=== PATIENT | female | born 1970 | race Caucasian/White ===

== ENCOUNTER → 2018-08-24 15:24 | Outpatient (CLI) | payer OTHER, SELFPAY ==
--- NOTE | 2018-08-24 15:34 | BI_ITS ---
MAMMOGRAPHY - BILATERAL SCREENING REASON FOR EXAM: Female, 48 years old. Routine annual screening examination. PERTINENT HISTORY: Non-contributory. TECHNIQUE: Digital bilateral breast treva (3D mammographic acquisition) in the CC and MLO projections. 2-D mediolateral oblique (MLO) and craniocaudad (CC) views of both breasts were obtained. CAD: Full Field Digital Mammography with Computer Added Detection was performed. COMPARISON: Comparison is made with prior study dated September 05, 2016. FINDINGS: Breast Composition: The breasts are heterogeneously dense, which may obscure small masses. There are no dominant masses or suspicious calcifications. Stable 4.5 mm well-defined nodule in the upper anterior lateral aspect of the right breast. A central fatty hilum is seen suggesting a small lymph node. No other significant abnormalities are identified. There has been no significant change since the prior study. BI/SCREENING MAMM (CAD), BILAT IMPRESSION: Stable bilateral screening mammogram. Yearly follow-up mammogram recommended. (A) ASSESSMENT CATEGORY: BIRADS Category 2: Benign. A letter regarding these results will be sent to the patient by the facility within 30 days. Approximately 10% of breast cancers are not detected by mammography. A normal mammogram should not delay biopsy of a clinically suspicious abnormality. [id number] Electronically Signed: Félix Bunn, at 9:00 EST , Service support ,
== END ==
PROVIDERS: Visit Provider Obstetrics & Gynecology
DX: Z12.31 Encounter for screening mammogram for malignant neoplasm of breast (principal)
CPT/HCPCS: 77063; 77067

== ENCOUNTER 2021-02-16 11:31 | Emergency (ER) | payer BC, SELFPAY ==
[2021-02-16 11:33] VITALS: BP 123/80; PULSE 100; RESP 16; TEMP 36.9; O2SAT 100; BMI 31.6
--- NOTE | 2021-02-16 11:59 | RAD_ITS ---
HISTORY: cough EXAMINATION/TECHNIQUE: XR Chest 1 View: Portable upright AP chest x-ray COMPARISON: 04/02/13 FINDINGS: LINES/DEVICES: None. LUNGS: Left basilar air space opacities partially obscuring the left hemidiaphragm. MEDIASTINUM AND CARDIOVASCULAR STRUCTURES: Cardiac silhouette not enlarged. Central airways and mediastinal contour are unremarkable. BONES AND SOFT TISSUES: No acute bony abnormalities. RAD/Chest 1 View (Portable) IMPRESSION: Left basilar airspace disease with possible small pleural effusion. Findings suspicious for pneumonia. Recommend short-term follow-up to resolution. at 1348 Reported and signed by: Darren Ruby MD Electronically Signed: Darren Ruby MD at 13:47 EDT Tel , Service support ,
--- NOTE | 2021-02-16 12:02 | EX.ED.DYSGE1 ---
HPI History of Present Illness Chief Complaint: Headache Informant: patient Onset/Context/Timing Onset: Days Context: Gradual Onset Current Severity: Moderate Maximum Severity: Moderate Narrative Narrative: Patient presents secondary to headache. She tested positive for Covid 8 days ago. Symptoms started 7 days ago with body aches, cough, fever. She reports decreased p.o. intake secondary to nausea. She is concerned she is getting dehydrated. She complains of a frontal headache that has been ongoing. She has been taking Tylenol and ibuprofen regularly. She did not take any meds this morning. [facility] Medical History (Updated 02/16/21 @ 14:[address] Brook Sepulveda MD) Thyroid disease Tonsillectomy planned Home Medications levothyroxine 50 mcg PO DAILY #30 tablet 04/03/13 [Rx Last Taken Unknown] loratadine 10 mg tablet 10 mg PO DAILY 02/08/21 [History Last Taken Unknown] dexamethasone [Decadron] 6 mg PO DAILY #9 tab 02/16/21 [Rx Last Taken Unknown] Allergy/AdvReac Type Severity Reaction Status Date / Time ampicillin Allergy Swelling Verified 02/16/21 11:33 Social History Smoking Status: Never smoker ROS ROS ED Constitutional Constitutional ED: Reports chills and fever(s) Eyes Eyes: Denies change in vision ENT ENT ED: Denies sore throat Cardiovascular Cardiovascular: Denies chest pain Respiratory/Chest Respiratory/Chest: Reports cough; Denies dyspnea or sputum Gastrointestinal Gastrointestinal: Reports nausea; Denies abdominal pain, diarrhea or vomiting Genitourinary Genitourinary ED: Denies dysuria Musculoskeletal Musculoskeletal: Reports myalgias; Denies back pain Integumentary Denies rash Neurologic Neurologic: Reports headache(s); Denies weakness Psychiatric Psychiatric: Denies anxiety or depression Allergic/Immunologic Allergic/Immunologic ED: Denies urticaria EXAM Physical Exam Const Vital Signs: 02/16/21 11:33 Temperature 98.5 F Temperature Source Temporal Pulse Rate 100 Respiratory Rate 16 Blood Pressure 123/80 H Blood Pressure Mean 94 Pulse Ox 100 Oxygen Delivery Method Room Air Positive well nourished and well developed General Appearance ED: well developed HEENT Reports normocephalic and head/scalp atraumatic Eyes PERRL and EOMs intact bilaterally Neck supple Neck Narrative: No meningismus Chest Wall inspection of chest normal and palpation of chest normal Resp normal respiratory effort and clear to auscultation bilaterally Cardio regular rate and regular rhythm GI normal to inspection, nondistended, normoactive bowel sounds and non-tender Palpation: soft Extremity normal to inspection Neuro oriented x3 and no sensory deficits noted Sensorium / Orientation: alert Motor Exam: strength 5/5 throughout Psych mental status grossly normal Skin no rashes or lesions noted MDM MDM MDM Narrative Medical decision making narrative: Patient was given a small IV fluid bolus along with Toradol, Reglan, Benadryl. Lab work and chest x-ray obtained. Lab Data Attestation: I reviewed the patient's lab results. Labs: Laboratory Results - last 24 hr 02/16/21 02/16/21 12:45 12:45 WBC 6.0 RBC 5.16 Hgb 15.2 H Hct 46.9 MCV 90.9 MCH 29.5 MCHC 32.4 RDW Std Deviation 43.1 RDW Coeff of Denise 12.8 Plt Count 255 MPV 10.5 Immature Gran % (Auto) 0.300 Neut % (Auto) 70.1 H Lymph % (Auto) 20.8 [place] % (Auto) 8.2 Eos % (Auto) 0.3 Baso % (Auto) 0.3 Absolute Neuts (auto) 4.2 Absolute Lymphs (auto) 1.24 Nucleated RBC % 0 Sodium 139 Potassium 4.6 Chloride 105 Carbon Dioxide 27.0 Anion Gap 7 BUN 7 Creatinine 0.73 Estim Creat Clear Calc 68.80 Est GFR (MDRD) Af Amer 108 Est GFR (MDRD) Non-Af 89 BUN/Creatinine Ratio 9.6 L Glucose 92 Calcium 8.7 Radiography Chest X-Ray - ED: 1 View, Read by ED Physician and Chronic Changes Diagnostic Testing: Radiology Impression Chest X-Ray 02/16/21 11:59 IMPRESSION: Left basilar airspace disease with possible small pleural effusion. Findings suspicious for pneumonia. Recommend short-term follow-up to resolution. at 1348 Reported and signed by: Darren Ruby MD Electronically Signed: Darren Ruby MD at 13:47 EDT Tel , Service support , Treatment and Re-Evaluation Comments:: On repeat evaluation headache is improved. Test results discussed with her. Radiologist interpretation feels there may be developing pneumonia in the left lung. In light of this with her positive Covid status should be treated with a course of Decadron. We discussed watching her O2 sats at home and when to return. Discharge Plan Triage Chief Complaint: Headache ED Provider: Brook Sepulveda Dx/Rx/DC Orders Clinical Impression: COVID-19 Instructions: Coronavirus Disease 2019 (COVID-19): Overview, Coronavirus Disease 2019 (COVID-19): Caring for Yourself or Others Prescriptions: New dexamethasone [Decadron] 6 mg tablet 6 mg PO DAILY Qty: 9 RF: 0 No Action loratadine [Claritin] 10 mg tablet 10 mg PO DAILY RF: 0 levothyroxine 50 MCG tablet 50 mcg PO DAILY Qty: 30 RF: 0 Primary Care Provider: Roderick Aquino Referrals: Roderick Aquino MD [Primary Care Provider] - 1-2 Weeks Disposition Disposition: Home, Self Care
[2021-02-16] MEDS: Metoclopramide 10 MG/2 ML Vial IV (12:41)
[2021-02-16] MEDS: Ketorolac 30 MG/ML Syringe IV (12:43)
[2021-02-16] MEDS: DiphenhydrAMINE 50 MG/ML Syringe 25 MG IV (12:45)
[2021-02-16 13:00] LABS: Absolute Lymphocyte Count 1.24 X10^3/uL (0.83-4.51); Absolute Neutrophil Count 4.2 X10^3/uL (2.0-7.7); Basophil# 0.02 X10^3/uL; Basophil% 0.3 % (0-1); Eosinophil# 0.02 X10^3/uL; Eosinophils% 0.3 % (0-5); Hematocrit 46.9 % (37-47); Hemoglobin 15.2 g/dL (12.0-15.0); Lymphocyte # 1.24 X10^3/ul (0.83-4.51); Lymphocyte % 20.8 % (19-41); Mean Corp Hgb Conc 32.4 g/dL (32-36); Mean Corpuscular Hgb 29.5 pg (27.0-32.0); Mean Corpuscular Volume 90.9 fL (81-99); Mean Platelet Vol. 10.5 fl (6.2-12.0); Monocyte# 0.49 X10^3/uL; Monocyte% 8.2 % (0-10); NRBC Flagged by Analyzer 0 % (0-5); Neutrophil # 4.18 X10^3/uL (2.7-7.7); Neutrophil % 70.1 % (47-70); Platelet Count 255 K/mm3 (150-450); RBC Distribution Width CV 12.8 % (11.6-14.6); RBC Distribution Width SD 43.1 fl (35.1-43.9); Red Blood Count 5.16 M/mm3 (4.2-5.4)
[2021-02-16 13:18] LABS: Anion Gap 7 (5-15); BUN 7 mg/dL (7-18); BUN/Creat Ratio 9.6 RATIO (10-20); Calcium,Total 8.7 mg/dL (8.5-10.1); Chloride 105 mmol/L (98-107); Creatinine, Serum 0.73 mg/dL (0.55-1.02); EST Glomerular Filtration Rate 89 mL/min (>60); Est Glom Filt Rate - Afr Amer 108 mL/min (>60); Glucose 92 mg/dL (74-106); Potassium 4.6 mmol/L (3.5-5.1); Sodium Level 139 mmol/L (136-145)
[2021-02-16 14:24] VITALS: BP 108/68; PULSE 68; RESP 12; O2SAT 93
[2021-02-16] MEDS: dexAMETHasone 4 MG Tablet 6 MG PO (14:38)
== END 2021-02-16 15:03 | disposition home or self-care (01) ==
PROVIDERS: Emergency Provider Emergency Medicine; PCP Family Medicine
DX: U07.1 COVID-19 (principal); E07.9 Disorder of thyroid, unspecified; Z79.899 Other long term (current) drug therapy
CPT/HCPCS: 71045; 80048; 85025; 96361; 96374; 96375; 99285; J7030; A4216

== ENCOUNTER → 2021-06-04 07:48 | Outpatient (CLI) | payer BC, SELFPAY ==
--- NOTE | 2021-06-04 07:52 | BI_ITS ---
MAMMOGRAPHY - BILATERAL SCREENING REASON FOR EXAM: Female, 51 years old. Routine annual screening examination. PERTINENT HISTORY: Non-contributory. TECHNIQUE: Digital bilateral breast joe (3D mammographic acquisition) in the CC and MLO projections. 2-D mediolateral oblique (MLO) and craniocaudad (CC) views of both breasts were obtained. CAD: Full Field Digital Mammography with Computer Added Detection was performed. COMPARISON: Comparison is made with prior examination dated 08/24/2018 and 09/05/2016. FINDINGS: Breast Composition: The breasts are heterogeneously dense, which may obscure small masses. There are no dominant masses or suspicious calcifications. No other significant abnormalities are identified. There has been no significant change since the prior study. BI/SCRN MAMM (CAD)W/JOE BILAT IMPRESSION: Stable bilateral screening mammogram. Yearly follow-up mammogram recommended. (A) ASSESSMENT CATEGORY: BIRADS Category 1: Negative. A letter regarding these results will be sent to the patient by the facility within 30 days. Approximately 10% of breast cancers are not detected by mammography. A normal mammogram should not delay biopsy of a clinically suspicious abnormality. [id number] Electronically Signed: Fléix Bunn MD at 9:14 EST , Service support ,
== END ==
PROVIDERS: PCP Family Medicine; Referring Provider Obstetrics & Gynecology; Visit Provider Obstetrics & Gynecology
DX: Z12.31 Encounter for screening mammogram for malignant neoplasm of breast (principal)
CPT/HCPCS: 77063; 77067

== ENCOUNTER → 2021-06-14 09:56 | Outpatient (CLI) | payer BC, SELFPAY ==
[2021-06-19 22:34] LABS: HPV APTIMA, High Risk Negative (Negative)
== END ==
PROVIDERS: PCP Family Medicine; Visit Provider Obstetrics & Gynecology
DX: Z12.4 Encounter for screening for malignant neoplasm of cervix (principal)
CPT/HCPCS: 87624; 88175; G0145